=== PATIENT | male | born 1980 | race Caucasian/White ===

== ENCOUNTER 2023-07-30 12:26 | Emergency (ER) | payer BC ==
[~2023-07-30] VITALS: Ht 177.8 cm; Wt 88.5 kg
[2023-07-30] MEDS: glucagon, human recombinant 1mg kit IM ONE (13:59)
[2023-07-30 16:03] VITALS: BP 131/92; PULSE 91; RESP 18; TEMP 98.5; O2SAT 95
== END 2023-07-30 16:06 | disposition home or self-care (01) ==
LOC: ER 12:26
DX: T18.128A Food in esophagus causing other injury, initial encounter (principal); W44.F3XA Food entering into or through a natural orifice, initial encounter; Y93.89 Activity, other specified; Y92.89 Other specified places as the place of occurrence of the external cause; Y99.8 Other external cause status
CPT/HCPCS: 96372; 99283; J1610